=== PATIENT | female | born 1980 | race Caucasian/White ===

== ENCOUNTER 2025-04-28 16:36 | Outpatient (CLI) | payer BC, OTHER ==
[~2025-04-28] VITALS: Ht 165.1 cm; Wt 72.7 kg
[2025-04-28 16:50] VITALS: BP 128/84; O2SAT 100
[2025-04-28] MEDS: methylPREDNISolone 1,000 MG, VIAL MATE ADAPTER 1 EACH in NS 100 ML IV ONE (17:15)
[2025-04-28 18:26] VITALS: BP 127/73; O2SAT 99
== END 2025-04-28 18:30 | disposition home or self-care (01) ==
LOC: M INFU 16:36
PROVIDERS: ATTEND Physician Assistant
DX: H46.9 Unspecified optic neuritis (principal)
CPT/HCPCS: 96365; J2919

== ENCOUNTER 2025-04-29 14:12 | Outpatient (CLI) | payer BC, OTHER ==
[~2025-04-29] VITALS: Ht 165.1 cm; Wt 73.5 kg
[2025-04-29 14:48] VITALS: BP 116/57; O2SAT 99
[2025-04-29] MEDS: methylPREDNISolone 1,000 MG, VIAL MATE ADAPTER 1 EACH in NS 100 ML IV ONE (14:52)
[2025-04-29 16:00] VITALS: BP 120/69; O2SAT 97
== END 2025-04-29 16:00 ==
LOC: M INFU 14:12 → EDUNIT# 16:30
PROVIDERS: ATTEND Physician Assistant
DX: H46.9 Unspecified optic neuritis (principal)
CPT/HCPCS: 96365; J2919

== ENCOUNTER 2025-04-30 13:50 | Outpatient (CLI) | payer BC, OTHER ==
[~2025-04-30] VITALS: Ht 165.1 cm; Wt 72.7 kg
[2025-04-30 13:59] VITALS: BP 125/76; O2SAT 99
[2025-04-30] MEDS: methylPREDNISolone 1,000 MG, VIAL MATE ADAPTER 1 EACH in NS 100 ML IV ONE (14:06)
[2025-04-30 14:50] VITALS: BP 111/58; O2SAT 98
== END 2025-04-30 14:50 ==
LOC: M INFU 13:50 → EDUNIT# 16:30
PROVIDERS: ATTEND Physician Assistant
DX: H46.9 Unspecified optic neuritis (principal)
CPT/HCPCS: 96365; J2919